=== PATIENT | male | born 1935 | race Caucasian/White ===

== ENCOUNTER 2024-05-21 09:53 | Day surgery (SDC) | payer MEDICARE ==
[2024-05-21 10:18] LABS: INR 1.13 (0.92-1.18); PROTHROMBIN TIME 11.8 SEC (9.3-11.3)
[2024-05-21] MEDS ORDERED: Propofol 200 MG/20 ML SDV ONE ×2 (10:30)
[2024-05-21] MEDS ORDERED: fentaNYL 50 MCG/ML SDV ONE (10:30)
[2024-05-21] MEDS ORDERED: Ketamine 200 MG/20 ML MDV ONE (10:30)
[2024-05-21] MEDS ORDERED: Midazolam 1 MG/ML 2 ML SDV ONE (10:30)
[2024-05-21] MEDS: Lactated Ringers 1,000 ML IV SCH (10:30)
[2024-05-21 12:04] VITALS: BP 184/78; PULSE 59
== END 2024-05-21 12:10 | disposition home or self-care (01) ==
LOC: CC.SDS 09:53
PROVIDERS: ATTEND Family Medicine
DX: K21.00 Gastro-esophageal reflux disease with esophagitis, without bleeding (principal); K31.819 Angiodysplasia of stomach and duodenum without bleeding; I10 Essential (primary) hypertension; N40.0 Benign prostatic hyperplasia without lower urinary tract symptoms; E03.9 Hypothyroidism, unspecified; E78.00 Pure hypercholesterolemia, unspecified; J45.909 Unspecified asthma, uncomplicated; Z79.890 Hormone replacement therapy; Z79.899 Other long term (current) drug therapy
CPT/HCPCS: 00811; 00812; 36415; 85610; 87081; 88305; 99100; J2250; J2704; J3010; J3490; J7120